=== PATIENT | female | born 1965 | race African-American/Black ===

== ENCOUNTER → 2021-02-28 | Outpatient (CLI) | payer BC ==
--- NOTE | 2021-02-28 18:03 | RAD ---
Thyroid ultrasound 02/28/2021 CLINICAL HISTORY: Thyromegaly. TECHNIQUE: A real-time ultrasound examination of the thyroid gland was performed. Multiple images wer e obtained. FINDINGS: The thyroid gland is enlarged. The right lobe of thyroid gland measures 5.3 x 1.4 x 1.5 cm in longitudinal, transverse, and AP dimensions. The left lobe of thyroid gland measures 4.9 x 1.4 x 1 .1 cm in size. The isthmus measures 8 mm in thickness. Multiple small hypoechoic and cystic nodules a re seen scattered throughout both lobes of the thyroid gland. These measure 3 to 8 mm in size. These findings are consistent with a multinodular goiter. An oval-shaped spongiform well-defined slightly h yperechoic nodule is seen within the right isthmus of the thyroid gland. This measures 2.2 cm in grea test diameter. Its ultrasound appearance is consistent with a TIRADS 1 (benign) nodule. IMPRESSION: Findings consistent with a multinodular goiter as discussed above. Electronically signed by: Taj Landers MD (02/28/2021 6:01 PM) [id number]
== END ==
LOC: US 10:26
PROVIDERS: ATTEND Otolaryngology
DX: E04.9 Nontoxic goiter, unspecified (principal)
CPT/HCPCS: 76536